=== PATIENT | male | born 1955 | race Caucasian/White ===

== ENCOUNTER 2021-12-27 10:33 | Outpatient (CLI) | payer MEDICARE ==
[2021-12-27] MEDS ORDERED: Iopamidol 370 76% 100 ML VIAL ONE (13:11)
== END 2021-12-27 10:34 | disposition home or self-care (01) ==
LOC: CT 10:33
PROVIDERS: ATTEND Internal Medicine Hematology & Oncology
DX: C61 Malignant neoplasm of prostate (principal); C79.51 Secondary malignant neoplasm of bone; M54.50 Low back pain, unspecified; N28.1 Cyst of kidney, acquired; M89.9 Disorder of bone, unspecified
CPT/HCPCS: 72131; 74177; 78306; A9503; Q9967